=== PATIENT | female | born 2000 | race Caucasian/White ===

== ENCOUNTER 2021-09-25 19:40 | Inpatient (IN) | payer BC, MEDICAID ==
[2021-09-25 20:59] VITALS: BMI 26.2
[2021-09-25] MEDS ORDERED: Lactated Ringer's 1,000 ML IV SCH ×2 (22:30)
[2021-09-25] MEDS ORDERED: Lidocaine 1% (PF) 30 ML VIAL SC PRN (22:30)
[2021-09-25] MEDS ORDERED: Carboprost 250 MCG/ML AMP IM PRN (22:30)
[2021-09-25] MEDS ORDERED: Methylergonovine 0.2 MG/ML VIAL IM PRN (22:30)
[2021-09-25] MEDS ORDERED: hydrALAZINE 20 MG/ML VIAL SLOW IVP PRN (22:30)
[2021-09-25] MEDS ORDERED: Promethazine HCl 25 MG/ML VIAL IM PRN (22:30)
[2021-09-25] MEDS ORDERED: NS w/ Oxytocin 30 units 500 ML IVPB SCH (22:30)
[2021-09-25] MEDS ORDERED: Butorphanol Tartrate 1 MG/ML VIAL SLOW IVP PRN (22:30)
[2021-09-25] MEDS ORDERED: NS w/ Oxytocin 30 units 500 ML IV SCH (22:30)
[2021-09-25] MEDS ORDERED: Ondansetron PF 4 MG/2 ML Vial IVP PRN (22:30)
[2021-09-25] MEDS ORDERED: Misoprostol 200 MCG TAB RC PRN (22:30)
[2021-09-25] MEDS ORDERED: Acetaminophen 500 MG TAB PO PRN (22:30)
[2021-09-25] MEDS ORDERED: Diphenoxylate HCl/Atropine Tablet PO PRN ×2 (22:30)
[2021-09-25] MEDS ORDERED: Misoprostol 100 MCG TAB PO PRN (23:52)
[2021-09-26 01:17] LABS: Hemoglobin 11.5 g/dL (12.0-15.5); Mean Corpuscular HGB CONC 32.4 g/dL (32.0-36.0); Mean Corpuscular Hemoglobin 26.9 pg (27.0-33.0); Mean Corpuscular Volume 82.9 fl (81.6-98.3); Mean Platelet Volume 11.2 fl (7.4-10.4); Platelet Count 350 10x3/uL (150-450); RBC Distribution Width 14.6 % (11.5-14.5); Red Blood Cell (RBC) Count 4.28 10x6/uL (3.90-5.03); White Blood Cell (WBC) Count 13.4 10x3/uL (3.5-10.5)
[2021-09-26] MEDS ORDERED: Fentanyl 2 mcg/Bup 0.1% Cadd 100 ML ONE (01:26)
[2021-09-26 01:48] LABS: Syphilis Antibody Nonreactive (Nonreactive); Syphilis Antibody Index 0.12 S/CO (<1.00 Non-Reactive)
[2021-09-26 01:50] LABS: Hep B Surf Ag Non-Reactive S/CO (NonReactive)
[2021-09-26 02:01] LABS: HBSAg Index 0.18 S/CO (0-0.99)
[2021-09-26] MEDS ORDERED: diphenhydrAMINE 50 MG/ML VIAL IVP PRN (02:06)
[2021-09-26] MEDS ORDERED: Hydrocerin (Eucerin) Cream 120 gm Jar TOP PRN (02:06)
[2021-09-26] MEDS ORDERED: Ondansetron PF 4 MG/2 ML Vial IVP PRN ×2 (02:06→04:35)
[2021-09-26] MEDS ORDERED: ePHEDrine Sulfate 50 MG/10 ML VIAL SLOW IVP PRN (02:06)
[2021-09-26] MEDS ORDERED: Promethazine HCl 25 MG/ML VIAL IM PRN (02:06)
[2021-09-26] MEDS ORDERED: Lactated Ringer's 500 ML IV PRN (02:06)
[2021-09-26] MEDS ORDERED: Acetaminophen 325 MG TAB PO PRN (02:06)
[2021-09-26] MEDS ORDERED: Naloxone HCl 0.4 mg/ml Vial IVP PRN ×2 (02:06)
[2021-09-26] MEDS ORDERED: Communication Order-Pharmacy FS SCH (02:15)
[2021-09-26] MEDS ORDERED: Fentanyl 2 mcg/Bupivacaine 0.1% Cassette 100 ML EPIDURAL SCH (02:15)
[2021-09-26] MEDS ORDERED: Milk Of Magnesia 30 ML UDCUP PO PRN (04:35)
[2021-09-26] MEDS ORDERED: Bisacodyl 10 MG SUPP PR PRN (04:35)
[2021-09-26] MEDS ORDERED: hydrALAZINE 20 MG/ML VIAL SLOW IVP PRN (04:35)
[2021-09-26] MEDS ORDERED: Boostrix 0.5 ML (Tdap) VIAL IM ONE (04:35)
[2021-09-26] MEDS ORDERED: diphenhydrAMINE 25 MG CAP PO PRN (04:35)
[2021-09-26] MEDS ORDERED: Misoprostol 200 MCG TAB VAG PRN (04:35)
[2021-09-26] MEDS ORDERED: Preparation H Ointment 28 GM TUBE PR PRN (04:35)
[2021-09-26] MEDS ORDERED: Lanolin Ointment 7 GM TUBE TOP PRN (04:35)
[2021-09-26] MEDS ORDERED: Benzocaine-Menthol 82.5 ML CAN TOP PRN (04:35)
[2021-09-26] MEDS ORDERED: NS w/ Oxytocin 30 units 500 ML IV SCH (05:15)
[2021-09-26] MEDS: Ibuprofen 800 MG TAB PO SCH ×3 (05:57→21:22)
[2021-09-26] MEDS ORDERED: HYDROcodone/Acetaminophen 5/325 mg Tablet PO PRN ×2 (07:41)
[2021-09-26] MEDS ORDERED: Zolpidem Tartrate 5 MG TAB PO PRN (07:42)
[2021-09-26] MEDS: Ferrous Sulfate 325 MG TAB PO SCH ×2 (07:55→17:10)
[2021-09-26] MEDS: Prenatal Vitamin 1 TAB PO SCH (07:59)
[2021-09-26] MEDS: Docusate 100 MG CAP PO SCH ×2 (07:59→21:22)
[2021-09-26 15:18] LABS: HIV (1/2) Antibody/Antigen Non-Reactive (NonReactive); HIV 1/2 INDEX 0.07 S/CO (<1.00)
[2021-09-26 21:11] LABS: SARS-CoV-2 PCR by NAA Not Detected (NotDetected)
[2021-09-27 03:28] LABS: Hemoglobin 10.3 g/dL (12.0-15.5); Mean Corpuscular HGB CONC 32.9 g/dL (32.0-36.0); Mean Corpuscular Hemoglobin 27.4 pg (27.0-33.0); Mean Corpuscular Volume 83.2 fl (81.6-98.3); Mean Platelet Volume 10.2 fl (7.4-10.4); Platelet Count 279 10x3/uL (150-450); RBC Distribution Width 14.6 % (11.5-14.5); Red Blood Cell (RBC) Count 3.76 10x6/uL (3.90-5.03); White Blood Cell (WBC) Count 16.2 10x3/uL (3.5-10.5)
[2021-09-27] MEDS: Ibuprofen 800 MG TAB PO SCH ×3 (05:32→21:59)
[2021-09-27] MEDS: Ferrous Sulfate 325 MG TAB PO SCH ×2 (07:50→16:46)
[2021-09-27] MEDS: Prenatal Vitamin 1 TAB PO SCH (09:35)
[2021-09-27] MEDS: Docusate 100 MG CAP PO SCH ×2 (09:35→21:59)
[2021-09-28] MEDS: Ibuprofen 800 MG TAB PO SCH (05:11)
[2021-09-28 08:02] VITALS: BP 112/68; TEMP 98.7
[2021-09-28] MEDS: Prenatal Vitamin 1 TAB PO SCH (08:29)
[2021-09-28] MEDS: Docusate 100 MG CAP PO SCH (08:29)
[2021-09-28] MEDS: Ferrous Sulfate 325 MG TAB PO SCH (08:29)
== END 2021-09-28 12:10 | disposition home or self-care (01) | DRG 807 ==
LOC: CSHLD/OP 19:40 → CSHLD 20:25 → CSHPP 09-26 06:52
PROVIDERS: ADMIT Obstetrics & Gynecology; ATTEND Obstetrics & Gynecology
PROC: 10E0XZZ Delivery of Products of Conception, External Approach (ICD-10-PCS; principal; 2021-09-26)
DX: O42.02 Full-term premature rupture of membranes, onset of labor within 24 hours of rupture (principal); Z37.0 Single live birth; Z20.822 Contact with and (suspected) exposure to COVID-19; Z3A.37 37 weeks gestation of pregnancy; Z87.440 Personal history of urinary (tract) infections; F32.A Depression, unspecified; F41.9 Anxiety disorder, unspecified; O99.344 Other mental disorders complicating childbirth
CPT/HCPCS: 36415; 51702; 85027; 86780; 86850; 86900; 86901; 87340; 87389; 99285; J2590; J7120; U0003; U0005